=== PATIENT | male | born 1995 | race Caucasian/White ===

== ENCOUNTER 2020-12-30 08:57 | Emergency (ER) | payer SELFPAY ==
[~2020-12-30] VITALS: Ht 185.4 cm; Wt 106.6 kg
[2020-12-30 08:57] VITALS: BP_SYST 151
[2020-12-30] MEDS ORDERED: DIPH-TET-PERTUS Vaccine 0.5 ML VIAL (ADACEL) I.M. ONE (09:00)
== END 2020-12-30 09:13 ==
LOC: SED 08:57
DX: S60.417A Abrasion of left little finger, initial encounter (principal); W22.8XXA Striking against or struck by other objects, initial encounter; Y93.89 Activity, other specified; Y92.89 Other specified places as the place of occurrence of the external cause; Y99.8 Other external cause status
CPT/HCPCS: 90715; 99283